=== PATIENT | female | born 1935 | race African-American/Black ===

== ENCOUNTER 2018-05-16 10:50 | Inpatient (IN) | payer MEDICARE, OTHER ==
[2018-05-16 11:15] LABS: #Basophils 0.2 thou/uL (0.0-0.2); #Eosinphils 0.2 thou/uL (0.0-0.7); #Lymphocytes 2.4 thou/uL (1.20-3.40); #Monocytes 0.6 thou/uL (0.11-0.59); #Neutrophils 5.3 thou/uL (1.40-6.50); %Basophils 1.8 % (0.0-1.0); %Eosinophils 2.4 % (0.0-10.0); %Lymphocytes 27.4 % (21.0-51.0); %Monocytes 6.9 % (0.0-10.0); %Neutrophils 61.6 % (42.0-75.0); Hemoglobin 13.5 g/dL (12.0-16.0); Mean Corpuscular HGB CONC 33.3 g/dL (32.0-36.0); Mean Corpuscular Volume 87.3 fL (78.0-98.0); Mean Platelet Volume 5.9 fL (7.4-10.4); Platelet Count 203 thou/uL (130-400); RBC Distribution Width 12.4 % (11.5-14.5); Red Blood Cell (RBC) Count 4.64 mill/uL (4.20-5.40); White Blood Cell (WBC) Count 8.7 thou/uL (4.8-10.8)
[2018-05-16 11:31] LABS: ALT (SGPT) 21 U/L (8-55); AST (SGOT) 22 U/L (5-34); Albumin 3.9 g/dL (3.4-4.8); Alkaline Phosphatase 73 U/L (40-150); Anion Gap 14 mmol/L (10-20); BUN (Urea Nitrogen) 23 mg/dL (9.8-20.1); Bilirubin, Total 0.8 mg/dL (0.2-1.2); Calc. Creatinine Clearance 0 mL/min (70-130); Calcium 9.9 mg/dL (7.8-10.44); Carbon Dioxide 20 mmol/L (23-31); Chloride 109 mmol/L (98-107); Estimated GFR-MDRD 32; Globulin 3.5 g/dL (2.4-3.5); Glucose 196 mg/dL (83-110); Potassium 4.4 mmol/L (3.5-5.1); Protein, Total 7.4 g/dL (6.0-8.3); Sodium 139 mmol/L (136-145)
[2018-05-16 11:56] LABS: CKMB 3.3 ng/mL (0-6.6)
[2018-05-16] MEDS ORDERED: Aspirin Chewable 81 MG TAB ONE (12:09)
--- NOTE | 2018-05-16 12:53 | RAD ---
CHEST 2 VIEWS: HISTORY: Dyspnea. COMPARISON: 03/10/2013. FINDINGS: Atherosclerosis of the aorta. Normal cardiac silhouette. The pulmonary vessels and hilum are normal . Costophrenic angles are clear. No masses or consolidation. No pneumothorax osseous abnormalities . IMPRESSION: Atherosclerosis. No acute cardiopulmonary process. POS: [facility]
[2018-05-16] MEDS ORDERED: Furosemide 20 MG/2 ML VIAL ONE (13:05)
[2018-05-16 15:23] VITALS: BMI 28.3
[2018-05-16] MEDS ORDERED: Ondansetron PF 4 MG/2 ML Vial IVP PRN (15:38)
[2018-05-16] MEDS ORDERED: Acetaminophen 325 MG TAB PO PRN (15:38)
[2018-05-16] MEDS ORDERED: Dextrose 50% Abboject 50 ML SYRINGE SLOW IVP PRN (15:51)
[2018-05-16] MEDS ORDERED: Dextrose 5% in Water 1,000 ML IV PRN (15:51)
--- NOTE | 2018-05-16 16:46 | HP ---
CHIEF COMPLAINT: Shortness of breath upon ambulation. HISTORY OF PRESENT ILLNESS: This is an 83-year-old female, who states over the last week or two she has been having worsening dyspnea on exertion. States that when she starts to walk or does anything physically exerting, she is starting to have shortness of breath. Denies any nausea, vomiting, diarrhea, constipation, chest pain, fevers, or chills. Denies any chest pain or any chest pressure. States that she was seen by a physician about a month ago where all of her lab work was at baseline according to her. The patient of note during her ER evaluation was found to have a creatinine of 1.84. Supposedly, this is her baseline with a creatinine in 2017 being 1.9. The patient also admits to diabetes and high blood pressure at home. States that she takes her medications. Apparently, was started on montelukast by her primary care recently for the shortness of breath that she had gone to see him for. The patient states that the symptoms worsened, so she came to the ER. The patient denies any other complaints. No associated aggravating factors. No other alleviating symptoms noted. The patient is seen and examined in the room. Family at bedside. All questions answered. ALLERGIES: PER PATIENT, NO KNOWN DRUG ALLERGIES. HOME MEDICATIONS: See MAR. FAMILY HISTORY: Noncontributory. SOCIAL HISTORY: No smoking or drinking. PAST MEDICAL HISTORY: Diabetes mellitus type 2, hypertension, chronic kidney disease stage 3. REVIEW OF SYSTEMS: All systems reviewed. Pertinent positives in HPI, otherwise negative. PHYSICAL EXAMINATION: VITAL SIGNS: Blood pressure 158/86, temperature 96.4, pulse of 98, respirations of 18, O2 saturation is 95% on room air. GENERAL: The patient lying in bed comfortably, appears in no acute discomfort or distress. HEENT: Pupils equal, round, and reactive to light and accommodation. Extraocular muscles intact. Oral cavity moist and pink. CARDIOVASCULAR: Regular rate and rhythm. S1 and S2. No murmurs, rubs, or gallops appreciated. PULMONARY: Clear to auscultation bilaterally. No respiratory distress. No increase in AP diameter. ABDOMEN: Positive bowel sounds. Soft, nontender. EXTREMITIES: 2+ peripheral pulses. No edema, cyanosis, clubbing noted. NEUROLOGICAL: Cranial nerves 2 through 12 intact. No loss of motor, sensory function. LABORATORY DATA: CBC within normal limits. BMP within normal limits except for a creatinine of 1.8 and EGFR of 32. Chest x-ray shows no acute cardiopulmonary process. ASSESSMENT AND PLAN: 1. Dyspnea on exertion. 2. Congestive heart failure. 3. Chronic kidney disease 3. 4. Troponinemia. 5. Hypertension. 6. Diabetes mellitus type 2. 7. Hyperlipidemia. PLAN: 1. At this point in time, admit the patient to Internal Medicine Team to the telemetry floor. 2. We will consult Cardiology. 3. We will hold off on lisinopril for now given kidney dysfunction. 4. We will start patient on aspirin, atorvastatin, metoprolol and Norvasc for blood pressure. 5. Target blood pressure 120 to 140. 6. We will start the patient on Lovenox 80 mg subcu q.12 for suspected ACS given troponin elevation and the patient's symptomatology. 7. Consult Cardiology. 8. We will order an echo, ultrasound of the renal system, A1c, troponin trend, CBC, BMP, as well as urinalysis. The patient wishes to remain a full code. Case and plan discussed with the patient and family at length. They understand and agree with this plan. Job ID: [id number]
[2018-05-16 17:04] LABS: Troponin I 0.115 ng/mL (< 0.028)
--- NOTE | 2018-05-16 18:19 | ULT ---
RENAL ULTRASOUND: 05/16/18 HISTORY: Acute renal failure. COMPARISON: None. TECHNIQUE: Sagittal and transverse imaging of the kidneys is performed. FINDINGS: Markedly limited evaluation of the left and right renal cortex. Both kidneys are markedly diminutive. There is bilateral renal cortical thinning. No evidence of hydronephrosis in the left or right kidney. There is an anechoic focus in the right renal cortex measuring 2.6 x 2.6 x 2.5 cm, likely representin g a small cortical cyst. There is anechoic focus in the mid left renal pelvis measuring 0.8 x 1.6 x 1.5 cm. A small parapelvic cyst is suspected. There is scarring in the mid left renal cortex. Right kidney measures 7.3 x 3.6 x 4.8 cm. Left kidney measures 5.4 x 9.1 x 4.4 cm. Urinary bladder is not visualized. IMPRESSION: 1. Bilateral renal atrophy with bilateral renal cortical thinning. 2. No hydronephrosis. POS: [facility]
[2018-05-16 19:35] LABS: Bilirubin Negative (Negative); Blood, Urine Negative (Negative); Clarity CLEAR (Clear); Glucose, Urine (Dipstick) Negative (Negative); Leukocyte Negative (Negative); Nitrite Negative (Negative); Protein, Urine (Dipstick) Negative (Neg-Trace); Specific Gravity, Urine 1.007 (1.002-1.036); Urobilinogen 0.2 mg/dL (0.2-1.0)
[2018-05-16 19:40] LABS: Bacteria/HPF None Seen HPF (None Seen); Hyaline Casts/LPF 0-3 HYALINE CAST LPF (0-3 Hyaline); Pathc Cast-AUWi Flag 0.14 (0-2.49); RBC/HPF 0-3 HPF (0-3); Squamous Epithelial None Seen HPF (0-3); WBC/HPF None Seen HPF (0-3)
--- NOTE | 2018-05-16 20:22 | CON ---
DATE OF CONSULTATION: 05/16/2018 REASON FOR CONSULTATION: Shortness of breath. HISTORY OF PRESENT ILLNESS: Ms. Goins is a pleasant 83-year-old female, who comes to the hospital for shortness of breath and cough. She has been noticing this for the last 3 days. She was seen in the ER, was found to have an elevated BNP, and indeterminate troponins. She was admitted for further evaluation and care. She has never had problems with heart before. She also was found to have elevated creatinine. She denies any chest pain, tightness, or pressure, only the cough. She states she felt similar about 2 months ago when she had a flu shot, but just for a few days and it went away, has not come back since at least 3 days ago. PAST MEDICAL HISTORY: 1. Type 2 diabetes. 2. Hypertension. 3. Chronic kidney disease, stage 3. 4. Glaucoma. SOCIAL HISTORY: No alcohol, tobacco, or drugs. FAMILY HISTORY: Noncontributory. OUTPATIENT MEDICATIONS: 1. Triamcinolone cream. 2. Lisinopril a day. 3. Travatan eye drops. 4. Combigan eye drops. 5. Aspirin 81 a day. 6. Montelukast. 7. Insulin Levemir. 8. Vitamin D3. ALLERGIES: NO KNOWN DRUG ALLERGIES. REVIEW OF SYSTEMS: A 12-point review of systems was done and was found to be negative unless stated in the history of present illness. PHYSICAL EXAMINATION: VITAL SIGNS: Temperature 96.4, pulse 98, respiratory rate 18, saturating 95% on room air, and blood pressure 158/86. GENERAL: Awake, alert, and oriented x3. No distress. HEENT: Normocephalic and atraumatic. NECK: Supple. LUNGS: Clear. CARDIOVASCULAR: S1 and S2. No S3 or S4. There is a grade 2/6 systolic murmur at the right upper sternal border. ABDOMEN: Soft. Positive bowel sounds. EXTREMITIES: Trace edema. SKIN: Warm and dry. LABORATORY DATA: Laboratory work was reviewed. CBC is unremarkable. Chemistries with a potassium of 4.4, chloride 109, carbon dioxide of 20, anion gap 14, BUN 23, creatinine 1.84. We have several creatinines on file and her range is in the 1.6 to 1.9 range, so she is close to what she normally is. Troponin was 0.13 and 0.12. Her BNP was 1250. Albumin was 3.9. UA was unremarkable. Chest x-ray showed no acute cardiopulmonary issues. Renal ultrasound showed bilateral renal atrophy. ASSESSMENT AND PLAN: 1. Elevated BNP. 2. Dyspnea on exertion. 3. Possible congestive heart failure. 4. Chronic kidney disease, stage 3. 5. Indeterminate troponin. 6. Hypertension. PLAN: 1. Awaiting echocardiogram for further evaluation. She may have dilated cardiomyopathy. However, we will see her echo, see what that shows. 2. Troponin is not elevated enough to cause an acute coronary syndrome. Would recommend against a full anticoagulation unless troponins continue to increase. 3. Further recommendations per results of echocardiogram. Job ID: [id number]
[2018-05-16] MEDS ORDERED: Enoxaparin Sodium 80 MG/0.8 ML SYRINGE SC SCH (21:00)
[2018-05-16] MEDS: Insulin Glargine 5 UNITS in Pre-Filled Syringe 1 EACH SC SCH (21:06)
[2018-05-16] MEDS: Atorvastatin Calcium 40 MG TAB PO SCH (21:07)
[2018-05-16] MEDS: Metoprolol Tartrate 25 MG TAB PO SCH (21:07)
[2018-05-17 05:22] LABS: #Basophils 0.1 thou/uL (0.0-0.2); #Eosinphils 0.3 thou/uL (0.0-0.7); #Neutrophils 5.1 thou/uL (1.40-6.50); %Basophils 1.1 % (0.0-1.0); %Eosinophils 2.8 % (0.0-10.0); %Lymphocytes 31.8 % (21.0-51.0); %Monocytes 10.7 % (0.0-10.0); %Neutrophils 53.6 % (42.0-75.0); Hemoglobin 14.3 g/dL (12.0-16.0); Mean Corpuscular HGB CONC 33.4 g/dL (32.0-36.0); Mean Corpuscular Hemoglobin 30.1 pg (27.0-31.0); Mean Corpuscular Volume 90.1 fL (78.0-98.0); Mean Platelet Volume 6.4 fL (7.4-10.4); Platelet Count 225 thou/uL (130-400); RBC Distribution Width 12.6 % (11.5-14.5); Red Blood Cell (RBC) Count 4.76 mill/uL (4.20-5.40); White Blood Cell (WBC) Count 9.4 thou/uL (4.8-10.8)
[2018-05-17 05:29] LABS: Hemoglobin A1c 6.9 % (4.0-6.0)
[2018-05-17 05:46] LABS: Anion Gap 16 mmol/L (10-20); BUN (Urea Nitrogen) 30 mg/dL (9.8-20.1); Calc. Creatinine Clearance 27 mL/min (70-130); Calcium 10.1 mg/dL (7.8-10.44); Carbon Dioxide 19 mmol/L (23-31); Chloride 105 mmol/L (98-107); Estimated GFR-MDRD 32; Glucose 132 mg/dL (83-110); Sodium 136 mmol/L (136-145)
[2018-05-17 08:41] LABS: Troponin I 0.128 ng/mL (< 0.028)
[2018-05-17] MEDS ORDERED: Enoxaparin Sodium 30 MG/0.3 ML SYRINGE SC SCH (09:00)
[2018-05-17] MEDS: Enoxaparin Sodium 40 MG/0.4 ML SYRINGE SC SCH (09:19)
[2018-05-17] MEDS: Amlodipine 5 MG TAB PO SCH (09:20)
[2018-05-17] MEDS: Aspirin 81 mg Enteric Coated Tablet PO SCH (09:21)
[2018-05-17] MEDS: Metoprolol Tartrate 25 MG TAB PO SCH ×2 (09:21→20:25)
--- NOTE | 2018-05-17 09:40 | PDOC.PN ---
- Subjective Encounter Start Date: 05/17/18 Encounter Start Time: 09:39 Patient seen and examined, no new issues or complaints, no family at bedside, all questions answered. - Objective Vital Signs & Weight: Vital Signs (12 hours) Temp Pulse Resp BP BP Pulse Ox 05/17/18 09:20 115 H 120/81 05/17/18 08:00 97.6 F 115 H 18 120/81 94 L 05/17/18 04:00 97.9 F 100 15 115/63 93 L Weight Weight 162 lb 4.8 oz I&O: 05/16/18 05/17/18 05/18/18 06:59 06:59 06:59 Intake Total 840 240 Output Total 600 Balance 240 240 Result Diagrams: 05/17/18 05:11 05/17/18 05:11 Additional Labs: Accuchecks 05/16/18 05/16/18 20:10 17:25 POC Glucose 160 H 158 H Phys Exam - Physical Examination Constitutional: NAD HEENT: PERRLA, moist MMs, sclera anicteric Neck: no nodes, no JVD, supple Respiratory: no wheezing, no rales, no rhonchi Cardiovascular: RRR, no rub 2/6 ERIC Gastrointestinal: soft Musculoskeletal: pulses present, edema present (trace) Dx/Plan (1) Dyspnea on exertion Code(s): R06.09 - OTHER FORMS OF DYSPNEA Status: Acute (2) CKD (chronic kidney disease) stage 4, GFR 15-29 ml/min Code(s): N18.4 - CHRONIC KIDNEY DISEASE, STAGE 4 (SEVERE) Status: Acute (3) Hypertension Code(s): I10 - ESSENTIAL (PRIMARY) HYPERTENSION Status: Acute (4) Diabetes mellitus Code(s): E11.9 - TYPE 2 DIABETES MELLITUS WITHOUT COMPLICATIONS Status: Acute - Plan * continue current plan of care * renal atrophy noted 5cm on one and 7cm on the other, CKD likely present consult placed to renal * check labs in AM * echo pending * cardio following * no changes in plan of care for now * plan d/w patient at length, daughter called via phone([phone] - no answer ) * case and plan d/w patient at length, she understood and agreed with this plan.
[2018-05-17 11:30] LABS: Hemoglobin 14.1 g/dL (12.0-16.0); Platelet Count 235 thou/uL (130-400)
[2018-05-17] MEDS ORDERED: Polyethylene Glycol 3350 17 GM Packet PO SCH (11:45)
[2018-05-17] MEDS: HumaLOG 300 UNITS/3 ML VIAL SC PRN ×2 (12:10→18:08)
[2018-05-17] MEDS ORDERED: Sodium Chloride 0.9% 1,000 ML IV SCH (13:00)
--- NOTE | 2018-05-17 15:20 | CON ---
DATE OF CONSULTATION: 05/17/2018 CONSULTING PHYSICIAN: Dr. Guevara. REASON FOR CONSULTATION: Chronic kidney disease. REASON FOR ADMISSION: Shortness of breath. HISTORY OF PRESENT ILLNESS: This is an 83-year-old female with history of type 2 diabetes, hypertension, chronic kidney disease stage 3, came to the hospital with above complaints and is being admitted. The patient's creatinine was slightly elevated from her baseline. Nephrology was consulted for Weeks management and close monitoring of renal function while diuresing. The patient is feeling better. She had some sinus pressure which is better. No chest pain, palpitation, no nausea, vomiting. PAST MEDICAL HISTORY: Positive for type 2 diabetes, hypertension, CKD. PAST SURGICAL HISTORY: Bowel surgery. HOME MEDICATIONS: Reviewed. ALLERGIES: NO KNOWN DRUG ALLERGY. SOCIAL HISTORY: No smoking, alcohol or drugs. FAMILY HISTORY: No history of any kidney disease. REVIEW OF SYSTEMS: CONSTITUTIONAL: Negative for weight loss or gain, ability to conduct usual activities. SKIN: Negative for rash, itching. EYES: Negative for double vision, pain. ENT/MOUTH: Negative for nose bleeding, neck stiffness, pain, tenderness. CARDIOVASCULAR: Negative for palpitations, dyspnea on exertion, orthopnea. RESPIRATORY: Negative for shortness of breath, wheezing, cough, hemoptysis, fever or night sweats. GASTROINTESTINAL: Negative for poor appetite, abdominal pain, heartburn, nausea, vomiting, constipation, or diarrhea. GENITOURINARY: Negative for urgency, frequency, dysuria, nocturia. MUSCULOSKELETAL: Negative for pain, swelling. NEUROLOGIC/PSYCHIATRIC: Negative for anxiety, depression. ALLERGY/IMMUNOLOGIC: Negative for skin rash, bleeding tendency. PHYSICAL EXAMINATION: GENERAL: This is a well-built female, in no apparent distress. VITAL SIGNS: blood pressure 120/81. HEENT: Atraumatic and normocephalic. Oral mucosa is moist. NECK: Supple. CVS: S1 and S2 heard. Regular rate and rhythm. RESPIRATORY: Clear. GASTROINTESTINAL: Abdomen is soft. MUSCULOSKELETAL: 1+ edema. DERMATOLOGIC: No skin rash. NEUROLOGIC: Alert and awake. PSYCHIATRIC: Mood and affect normal. LABORATORY DATA: Creatinine is 1.85 from baseline of 1.6. Potassium is 4.0. Bicarb is 19. ASSESSMENT AND PLAN: 1. Acute kidney injury on chronic kidney disease stage 3 with creatinine worsening. Avoid nephrotoxins and monitor. Gentle hydration if tolerated. 2. Ischemic nephropathy with chronic kidney disease stage 3. We will monitor. 3. Cardiorenal syndrome. 4. Metabolic acidosis. 5. History of type 2 diabetes. 6. Avoid nephrotoxins. Renally dose the medications. We will gently hydrate as tolerated. 7. We will follow. Job ID: [id number]
--- NOTE | 2018-05-17 18:06 | PDOC.CTH ---
Cardiology Progress Note - Subjective Breathing slightly better but states she still feels something is wrong. No chest pain. - Objective Vital Signs Temp Pulse Resp BP BP BP Pulse Ox 05/17/18 16:00 97.9 F 103 H 18 135/85 05/17/18 12:00 97.5 F L 92 16 114/64 95 05/17/18 09:20 115 H 120/81 05/17/18 08:00 97.6 F 115 H 18 120/81 94 L Weight 162 lb 4.8 oz 05/16/18 05/17/18 05/18/18 06:59 06:59 06:59 Intake Total 840 240 Output Total 600 Balance 240 240 - Physical Examination General/Neuro: alert & oriented x3, NAD Neck: no JVD present Lungs: CTA, unlabored respirations Heart: RRR Abdomen: NT/ND Extremities: + edema B (no edema.) - Telemetry Telemetry Rhythm: NSR - Labs Result Diagrams: 05/17/18 10:39 05/17/18 10:39 Troponin/CKMB CK-MB (CK-2) 3.3 ng/mL (0-6.6) 05/16/18 10:10 Troponin I 0.128 ng/mL (< 0.028) H 05/17/18 07:50 - Assessment/Plan 1. SOB. 2. Chronic diastolic heart failure. She does not seem overload today. 3. SHIRAZ on CKD. PLAN: - Agree with hydration for kidney injury. - No new recs.
[2018-05-17] MEDS: Atorvastatin Calcium 40 MG TAB PO SCH (20:26)
[2018-05-17] MEDS: Insulin Glargine 5 UNITS in Pre-Filled Syringe 1 EACH SC SCH (20:49)
[2018-05-17] MEDS ORDERED: Oxymetazoline HCl 0.05% ( 15 ML ) NASAL SCH (21:00)
[2018-05-17] MEDS: Oxymetazoline HCl 0.05% (30 ML BOT) NS SCH (21:04)
[2018-05-18 05:31] LABS: #Basophils 0.1 thou/uL (0.0-0.2); #Eosinphils 0.3 thou/uL (0.0-0.7); #Monocytes 1.1 thou/uL (0.11-0.59); #Neutrophils 3.8 thou/uL (1.40-6.50); %Basophils 1.2 % (0.0-1.0); %Eosinophils 4.1 % (0.0-10.0); %Monocytes 13.5 % (0.0-10.0); %Neutrophils 45.2 % (42.0-75.0); Mean Corpuscular HGB CONC 33.5 g/dL (32.0-36.0); Mean Corpuscular Hemoglobin 30.4 pg (27.0-31.0); Mean Corpuscular Volume 90.6 fL (78.0-98.0); Mean Platelet Volume 6.5 fL (7.4-10.4); Platelet Count 209 thou/uL (130-400); RBC Distribution Width 12.7 % (11.5-14.5); Red Blood Cell (RBC) Count 4.29 mill/uL (4.20-5.40); White Blood Cell (WBC) Count 8.4 thou/uL (4.8-10.8)
[2018-05-18 05:55] LABS: Anion Gap 14 mmol/L (10-20); BUN (Urea Nitrogen) 31 mg/dL (9.8-20.1); Calc. Creatinine Clearance 26 mL/min (70-130); Calcium 9.4 mg/dL (7.8-10.44); Carbon Dioxide 24 mmol/L (23-31); Chloride 104 mmol/L (98-107); Estimated GFR-MDRD 29; Glucose 166 mg/dL (83-110); Potassium 4.1 mmol/L (3.5-5.1); Sodium 138 mmol/L (136-145)
[2018-05-18] MEDS ORDERED: Docusate 100 MG CAP PO SCH (09:00)
[2018-05-18] MEDS ORDERED: Polyethylene Glycol 3350 17 GM Packet PO SCH (09:00)
[2018-05-18] MEDS: Metoprolol Tartrate 25 MG TAB PO SCH (09:17)
[2018-05-18] MEDS: Amlodipine 5 MG TAB PO SCH (09:17)
[2018-05-18] MEDS: Enoxaparin Sodium 40 MG/0.4 ML SYRINGE SC SCH (09:17)
[2018-05-18] MEDS: Aspirin 81 mg Enteric Coated Tablet PO SCH (09:17)
[2018-05-18] MEDS: Oxymetazoline HCl 0.05% (30 ML BOT) NS SCH (09:18)
--- NOTE | 2018-05-18 11:19 | PRG ---
DATE OF SERVICE: 05/18/2018 SUBJECTIVE: This is an 83-year-old female being seen for acute kidney injury. The patient denies nausea, vomiting, or chest pain. OBJECTIVE: CONSTITUTIONAL: The patient is awake and alert. VITAL SIGNS: Afebrile, pulse 95, breathing 16, blood pressure 114/68. GENERAL APPEARANCE AND MENTAL STATUS: Fair. HEAD/NECK: Normocephalic. Atraumatic. EYES: EOMI. No deformity. EARS: Clear. No ulcers. NOSE: Intact. No lesions. MOUTH: Clear. No discharge. THROAT: Clear. No exudate. LUNGS: Clear. No crackles. CARDIAC: S1, S2. No rub. ABDOMEN: Benign. Bowel sounds positive. GENITALIA/RECTUM: Weeks absent. BACK/EXTREMITIES: Edema 0+. NEUROLOGICAL: Alert and motor intact. LABORATORY STUDIES: Hemoglobin 13. Creatinine 1.8. ASSESSMENT: 1. Acute kidney injury. 2. Hypertension, stable. 3. Anemia, stable. 4. The patient will follow up with Dr. Harris. Job ID: [id number]
[2018-05-18] MEDS: HumaLOG 300 UNITS/3 ML VIAL SC PRN (11:39)
--- NOTE | 2018-05-18 14:04 | PDOC.CTH ---
Cardiology Progress Note - Subjective She feels much better today after hydration. Breathing is at baseline and improved. - Objective Vital Signs Temp Pulse Resp BP BP Pulse Ox 05/18/18 11:38 97.6 F 87 16 119/57 L 95 05/18/18 09:17 97 114/68 05/18/18 07:27 98.3 F 97 20 114/68 96 05/18/18 03:50 98.4 F 98 22 H 130/69 94 L Weight 165 lb 05/17/18 05/18/18 05/19/18 06:59 06:59 06:59 Intake Total 840 2180 Output Total 600 900 Balance 240 1280 - Physical Examination General/Neuro: alert & oriented x3, NAD Neck: no JVD present Lungs: unlabored respirations Heart: RRR Abdomen: NT/ND Extremities: other: (no edema.) - Telemetry Telemetry Rhythm: NSR - Labs Result Diagrams: 05/18/18 05:00 05/18/18 05:00 Troponin/CKMB CK-MB (CK-2) 3.3 ng/mL (0-6.6) 05/16/18 10:10 Troponin I 0.128 ng/mL (< 0.028) H 05/17/18 07:50 - Assessment/Plan 1. SOB. 2. Chronic diastolic heart failure. She does not seem overload today. 3. SHIRAZ on CKD. PLAN: - Renal function improved. - CV stable. - Normal LV function. - May discharge home any time from cardiac perspective.
[2018-05-18 16:26] VITALS: TEMP 97.5
[2018-05-18 20:01] VITALS: BP 135/61
--- NOTE | 2018-05-19 01:02 | DIS ---
DATE OF ADMISSION: 05/16/2018 DATE OF DISCHARGE: 05/18/2018 DISCHARGE DIAGNOSES: 1. Dyspnea on exertion, multifactorial, improved. 2. Acute kidney injury on chronic kidney disease stage 4. 3. Hypertension, stable. 4. Diabetes mellitus type 2, insulin requiring. 5. Chronic diastolic congestive heart failure with preserved ejection fraction of 60% to 65%. CONSULTATIONS: 1. Dr. Morel with Cardiology Service. 2. Dr. Franz and Dr. Harris with Nephrology Service. PERTINENT LAB AND X-RAY FINDINGS: Creatinine ranged between 1.84 to 2.06. Estimated GFR ranged between 28 to 32. Hemoglobin A1c 6.9. BNP 1250. CBC within normal limits. Portable chest x-ray dated 05/16/2018, showed no acute cardiopulmonary process. Bilateral renal ultrasound dated 05/16/2018, showed bilateral renal atrophy with bilateral renal cortical thinning. No hydronephrosis noted. 2D transthoracic echocardiogram dated 05/17/2018, showed ejection fraction of 60% to 65%, grade 1/3 diastolic dysfunction noted. HOSPITAL COURSE: The patient was initially admitted after presenting with dyspnea on exertion of unclear etiology. The patient was initially managed with conservative management including aspirin, Lipitor, and evaluation by the Cardiology Service. The patient underwent adjustment to her chronic medication regimen with the addition of metoprolol and Norvasc with lisinopril being held due to chronic kidney disease and worsening renal failure. The patient was evaluated by the Nephrology Service with recommendations to avoid nephrotoxic agents and limit contrast exposure. The patient did receive low volume IV fluids for approximately 24 hours, stabilizing renal function and symptomatically improved. 2D transthoracic echocardiogram was performed with results as stated previously showing grade 1/3 diastolic dysfunction with preserved ejection fraction of 60% to 65%. No specific intervention recommended by Cardiology Service and Medical Management after discharge. Overall, the patient has remained clinically stable through the remainder of the hospital course. I have examined the patient's at the time of discharge and discussed followup instructions. The patient is overall clinically stable and ready for discharge on 05/18/2018. DISCHARGE MEDICATIONS: 1. Enteric-coated aspirin 81 mg p.o. daily. 2. Brimonidine tartrate/timolol 1 drop to each eye b.i.d. 3. Vitamin D3 1000 units p.o. daily. 4. Levemir 20 units subcutaneously q.a.m. 5. Travatan 1 drop to each eye at bedtime. 6. Norvasc 2.5 mg p.o. daily. 7. Lipitor 40 mg p.o. at bedtime. 8. Lopressor 12.5 mg p.o. b.i.d. FOLLOWUP: The patient will follow up with her primary care provider at [facility] in [place], [place] on 05/25/2018, at 3:15 p.m. The patient will follow up with Dr. Parker Patel at [facility] in [place], [place]. The patient will follow up with Dr. Morel on 06/19/2018, at 10:30 a.m. The patient will follow up with Dr. Harris with Nephrology Service in 3 to 4 weeks after discharge. CONDITION ON DISCHARGE: Stable. ACTIVITY: Ad-andrew. DIET: ADA and heart healthy. CODE STATUS: Full. DISPOSITION: Home on 05/18/2018. TIME SPENT: Total time preparing and coordinating discharge, 31 minutes. Job ID: [id number]
== END 2018-05-18 18:05 | disposition home or self-care (01) | DRG 292 ==
LOC: SCSER 10:50 → 2NO 12:24
PROVIDERS: ADMIT Internal Medicine; ATTEND Internal Medicine
DX: I13.0 Hypertensive heart and chronic kidney disease with heart failure and stage 1 through stage 4 chronic kidney disease, or unspecified chronic kidney disease (principal); N18.4 Chronic kidney disease, stage 4 (severe); N17.9 Acute kidney failure, unspecified; E87.2 Acidosis; I50.32 Chronic diastolic (congestive) heart failure; E11.22 Type 2 diabetes mellitus with diabetic chronic kidney disease; E78.5 Hyperlipidemia, unspecified; H40.9 Unspecified glaucoma; D64.9 Anemia, unspecified; Z79.82 Long term (current) use of aspirin; Z79.4 Long term (current) use of insulin; Z98.890 Other specified postprocedural states
CPT/HCPCS: 36415; 36416; 71046; 76770; 80048; 80053; 81001; 82553; 83036; 83880; 83970; 84484; 85025; 93005; 93306; 96374; J1650; J1825; J1940

== ENCOUNTER 2020-09-05 16:15 | Inpatient (IN) | payer MEDICARE, OTHER ==
[~2020-09-05 16:15] MED LIST: Iopamidol-370 76% 500 ML 1 ML ONE
[2020-09-05 17:16] LABS: #Eosinphils 0.1 thou/uL (0.0-0.7); #Lymphocytes 2.2 thou/uL (1.20-3.40); #Monocytes 1.4 thou/uL (0.11-0.59); #Neutrophils 7.9 thou/uL (1.40-6.50); %Basophils 0.1 % (0.0-1.0); %Eosinophils 0.7 % (0.0-10.0); %Lymphocytes 18.7 % (21.0-51.0); %Monocytes 12.2 % (0.0-10.0); %Neutrophils 68.3 % (42.0-75.0); Hemoglobin 13.4 g/dL (12.0-16.0); Mean Corpuscular HGB CONC 32.6 g/dL (32.0-36.0); Mean Corpuscular Hemoglobin 29.8 pg (27.0-31.0); Mean Corpuscular Volume 91.3 fL (78.0-98.0); Mean Platelet Volume 6.8 fL (7.4-10.4); Platelet Count 304 thou/uL (130-400); RBC Distribution Width 13.3 % (11.5-14.5); Red Blood Cell (RBC) Count 4.51 mill/uL (4.20-5.40); White Blood Cell (WBC) Count 11.6 thou/uL (4.8-10.8)
[2020-09-05 17:45] LABS: Bilirubin Negative (Negative); Blood, Urine Negative (Negative); Clarity Clear (Clear); Glucose, Urine (Dipstick) Normal (Negative); Ketone, Urine Negative (Negative); Leukocyte 75 Leu/uL (Negative); Nitrite Negative (Negative); Protein, Urine (Dipstick) 10 mg/dL (Neg-Trace); RBC/HPF 0-3 HPF (0-3); Specific Gravity, Urine 1.012 (1.002-1.036); Squamous Epithelial 0-3 HPF (0-3)
[2020-09-05 17:46] LABS: Bacteria/HPF Rare-Few HPF (None Seen)
[2020-09-05 17:53] LABS: ALT (SGPT) 16 U/L (8-55); AST (SGOT) 30 U/L (5-34); Albumin 3.2 g/dL (3.4-4.8); Alkaline Phosphatase 91 U/L (40-110); Anion Gap 14 mmol/L (10-20); BUN (Urea Nitrogen) 11 mg/dL (9.8-20.1); Bilirubin, Total 0.8 mg/dL (0.2-1.2); Calc. Creatinine Clearance 0 mL/min (70-130); Calcium 9.8 mg/dL (7.8-10.44); Carbon Dioxide 20 mmol/L (23-31); Chloride 109 mmol/L (98-107); Globulin 5.1 g/dL (2.4-3.5); Glucose 185 mg/dL (83-110); Potassium 4.4 mmol/L (3.5-5.1); Protein, Total 8.3 g/dL (5.8-8.1); Sodium 139 mmol/L (136-145)
[2020-09-05] MEDS ORDERED: cefTRIAXone\\ROCEPHIN 2 GM VIAL ONE (19:03)
[2020-09-05] MEDS ORDERED: Azithromycin 500 MG VIAL ONE (19:03)
[2020-09-05] MEDS ORDERED: Enoxaparin Sodium 80 MG/0.8 ML SYRINGE ONE (20:02)
[2020-09-05] MEDS ORDERED: Dexamethasone 10 MG/ML VIAL ONE (20:51)
[2020-09-05 21:15] LABS: Lactic Acid 2.8 mmol/L (0.5-2.2)
[2020-09-05 23:00] VITALS: BMI 29.1
[2020-09-05] MEDS ORDERED: Ondansetron ODT 4 MG TAB SL PRN (23:00)
[2020-09-05] MEDS ORDERED: Ondansetron PF 4 MG/2 ML Vial IVP PRN (23:00)
[2020-09-05] MEDS ORDERED: Acetaminophen 325 MG TAB PO PRN (23:00)
[2020-09-06 02:21] LABS: Troponin I 0.012 ng/mL (< 0.028)
[2020-09-06] MEDS ORDERED: Dextrose 50% Abboject 50 ML SYRINGE SLOW IVP PRN (03:28)
[2020-09-06] MEDS ORDERED: HumaLOG 300 UNITS/3 ML VIAL SC PRN (03:28)
[2020-09-06] MEDS ORDERED: Acetaminophen 325 MG TAB PO PRN (03:28)
[2020-09-06] MEDS ORDERED: Dextrose 5% in Water 1,000 ML IV PRN (03:28)
[2020-09-06] MEDS ORDERED: Ondansetron PF 4 MG/2 ML Vial IVP PRN (03:28)
[2020-09-06] MEDS ORDERED: hydrALAZINE 20 MG/ML VIAL SLOW IVP PRN (03:32)
[2020-09-06] MEDS ORDERED: Sodium Chloride 0.9% 1,000 ML IV SCH ×2 (03:45→04:05)
[2020-09-06 04:46] LABS: SARS-CoV-2 NAA Rapid Test DETECTED (NotDetected)
[2020-09-06 06:15] LABS: Anion Gap 13 mmol/L (10-20); BUN (Urea Nitrogen) 12 mg/dL (9.8-20.1); Calc. Creatinine Clearance 41 mL/min (70-130); Calcium 9.6 mg/dL (7.8-10.44); Carbon Dioxide 23 mmol/L (23-31); Chloride 106 mmol/L (98-107); Glucose 247 mg/dL (83-110); Potassium 4.2 mmol/L (3.5-5.1); Sodium 138 mmol/L (136-145)
[2020-09-06 06:16] LABS: ALT (SGPT) 15 U/L (8-55); AST (SGOT) 22 U/L (5-34); Albumin 3.2 g/dL (3.4-4.8); Alkaline Phosphatase 79 U/L (40-110); Bilirubin, Direct 0.5 mg/dL (0.1-0.3); Bilirubin, Total 0.8 mg/dL (0.2-1.2); CRP (Inflammatory) 3.35 mg/dL (= or < 0.5); Protein, Total 7.8 g/dL (5.8-8.1)
[2020-09-06 06:17] LABS: Band 1 % (5-11); Hemoglobin 14.1 g/dL (12.0-16.0); Lymphocytes 13 % (21-51); MDiff Complete? YES; Mean Corpuscular HGB CONC 33.3 g/dL (32.0-36.0); Mean Corpuscular Hemoglobin 30.5 pg (27.0-31.0); Mean Corpuscular Volume 91.8 fL (78.0-98.0); Mean Platelet Volume 6.7 fL (7.4-10.4); Monocytes 2 % (0-10); Neutrophil 84 % (42-75); Platelet Count 321 thou/uL (130-400); Platelet Morphology Comment Appears Adequate; RBC Distribution Width 13.3 % (11.5-14.5); Red Blood Cell (RBC) Count 4.62 mill/uL (4.20-5.40); White Blood Cell (WBC) Count 7.9 thou/uL (4.8-10.8)
[2020-09-06] MEDS: HumaLOG 300 UNITS/3 ML VIAL SC PRN ×2 (06:42→12:43)
[2020-09-06] MEDS ORDERED: Enoxaparin Sodium 80 MG/0.8 ML SYRINGE SC SCH ×2 (09:00→21:00)
[2020-09-06] MEDS ORDERED: Zinc Sulfate 220 MG CAP PO SCH (09:00)
[2020-09-06] MEDS ORDERED: Amlodipine 5 MG TAB PO SCH ×2 (09:00→09:30)
[2020-09-06] MEDS ORDERED: Famotidine 20 MG TAB PO SCH (09:00)
[2020-09-06] MEDS ORDERED: Metoprolol Tartrate 25 MG TAB PO SCH (09:00)
[2020-09-06] MEDS ORDERED: Ascorbic Acid 500 mg Chewable Tablet PO SCH (09:00)
[2020-09-06] MEDS ORDERED: Lantus 1000 UNITS/10 ML VIAL SC SCH (09:00)
[2020-09-06] MEDS ORDERED: Apixaban 5 MG TAB PO SCH ×2 (09:45→21:00)
[2020-09-06 12:35] VITALS: BP 137/77; TEMP 98.7
[2020-09-06] MEDS ORDERED: Dexamethasone 4 mg/ml Vial SLOW IVP SCH (18:00)
[2020-09-06] MEDS ORDERED: cefTRIAXone\\ROCEPHIN 1 GM in Sodium Chloride 0.9% 100 ML IVPB SCH (19:00)
[2020-09-07] MEDS ORDERED: Amlodipine 10 MG TAB PO SCH (09:00)
== END 2020-09-06 13:50 | disposition home or self-care (01) | DRG 871 ==
LOC: ERS 16:15 → 2SW 20:51
PROVIDERS: ADMIT Internal Medicine; ATTEND Internal Medicine
DX: A41.89 Other specified sepsis (principal); U07.1 COVID-19; J12.82 Pneumonia due to coronavirus disease 2019; I26.99 Other pulmonary embolism without acute cor pulmonale; N39.0 Urinary tract infection, site not specified; E87.2 Acidosis; I13.0 Hypertensive heart and chronic kidney disease with heart failure and stage 1 through stage 4 chronic kidney disease, or unspecified chronic kidney disease; I50.32 Chronic diastolic (congestive) heart failure; E11.22 Type 2 diabetes mellitus with diabetic chronic kidney disease; E78.5 Hyperlipidemia, unspecified; N18.30 Chronic kidney disease, stage 3 unspecified; Z79.82 Long term (current) use of aspirin; Z79.4 Long term (current) use of insulin; Z79.899 Other long term (current) drug therapy
CPT/HCPCS: 0240U; 36415; 36416; 71045; 71275; 80048; 80053; 80076; 81003; 81015; 82728; 83605; 84484; 85025; 85379; 86140; 87040; 87086; 93005; 93970; 94760; J0456; J0696; J1100; J1650; J1815; Q9967

== ENCOUNTER 2022-04-25 03:34 | Emergency (ER) | payer MEDICAID, MEDICARE, OTHER ==
[2022-04-25] MEDS ORDERED: Sodium Bicarb 50 MEQ/50 ML Abboject 8.4% SYRINGE ONE (03:36)
[2022-04-25] MEDS ORDERED: Calcium Chloride 1 GM/10 ML Abboject SYRINGE ONE (03:36)
[2022-04-25] MEDS ORDERED: EPINEPHrine 1 MG/10 ML Abboject SYRINGE ONE (03:36)
== END 2022-04-25 03:56 | disposition expired ==
LOC: ERS 03:34
DX: I46.9 Cardiac arrest, cause unspecified (principal); E11.9 Type 2 diabetes mellitus without complications; E78.00 Pure hypercholesterolemia, unspecified; I10 Essential (primary) hypertension
CPT/HCPCS: 31500; 36416; 92950; 96374; J0171